=== PATIENT | male | born 1930 | race Caucasian/White ===

== ENCOUNTER 2022-02-08 15:22 | Emergency (ER) | payer MEDICARE ==
[~2022-02-08] VITALS: Ht 190.5 cm; Wt 119.7 kg
[2022-02-08 15:39] VITALS: BP 124/63
--- NOTE | 2022-02-08 17:41 | NUR ---
pt left without dc papers. verbalized aci.
== END 2022-02-08 17:41 | disposition home or self-care (01) ==
LOC: MED 15:22
DX: M79.672 Pain in left foot (principal); I12.9 Hypertensive chronic kidney disease with stage 1 through stage 4 chronic kidney disease, or unspecified chronic kidney disease; N18.9 Chronic kidney disease, unspecified
CPT/HCPCS: 73630; 99283